=== PATIENT | female | born 1950 | race Hispanic/Latino ===

== ENCOUNTER 2019-01-05 12:21 | Emergency (ER) | payer MEDICARE ==
[~2019-01-05] VITALS: Ht 152.4 cm; Wt 75.7 kg
--- OUTSIDE RECORDS SUMMARY | 2019-01-05 12:24 | XMS REPORT ---
Author Author James Dunne Organization [employer] Address Unknown Phone Unavailable Care Team Providers Care Sld Educational Aide Name Role Phone James Dunne CP Unavailable Allergies No Known Allergies Problems Problem Type Condition Code Onset Dates Condition Status Problem Vitamin D deficiency E55.9 Active Problem Polyarthralgia M25.50 Active Problem Polyarthritis M13.0 Active Medications Medication Code System Code Instructions Start Date End Date Status Dosage Vitamin D (Ergocalciferol) [facility] [id number] 66580 UNIT Orally Once a week November 20, 2018 Active 1 capsule Results No Known Results Summary Purpose [employer] Submission
--- OUTSIDE RECORDS SUMMARY | 2019-01-05 12:24 | XMS REPORT | Continuity of Care Document ---
Author Author [email or web address] Address Unknown Phone Unavailable Care Team Providers Care Clinical Ob Name Role Phone [employer] Unavailable Unavailable Problems Problem Status Onset Date Classification Date Reported Comments Source Vitamin D deficiency Active Problem 11/22/2018 Sohail Vázquezer Polyarthralgia Active Problem 11/22/2018 Sohail Vázquezer Polyarthritis Active Problem 11/22/2018 Sohail Dunne Medications Medication Details Route Status Patient Instructions Ordering Provider Order Date Source Vitamin D (Ergocalciferol) 1 capsule Orally Active 80660 UNIT Orally Once a week [place] 11/21/2018 Sohail Dunne Vitamin D (Ergocalciferol) 1 capsule Orally Active 31145 UNIT Orally Once a week [place] 11/20/2018 Sohail Dunne Omeprazole 1 capsule Orally Active 40 MG Orally Once a day [place] Sohail Dunne Ondansetron 1 tablet on the tongue and allow to dissolve as needed Orally Active 4 MG Orally every 4 hrs [place] Sohail Dunne Lisinopril 1 tablet Orally Active 20 MG Orally Once a day [place] Sohail Dunne Dicyclomine HCl 2 capsules Orally Active 10 MG Orally Four times a day [place] Sohail Dunne Allergies, Adverse Reactions, Alerts Substance Category Reaction Severity Reaction type Status Date Reported Comments Source muscle relaxors Adverse Reaction hyperactivity & Nervousness Adverse Reaction Active 11/12/2018 Sohail Dunne Immunizations No Data Provided for This Section Results No Data Provided for This Section Pathology Reports No Data Provided for This Section Diagnostic Reports No Data Provided for This Section Consultation Notes No Data Provided for This Section Discharge Summaries No Data Provided for This Section History and Physicals No Data Provided for This Section Vital Signs Vital Sign Value Date Comments Source Weight 165.7 11/12/2018 Sohail Vázquezer Height 59 11/12/2018 Sohail Dunne Temperature Oral (F) 97.0 F 11/12/2018 Sohail Dunne Heart Rate 72 11/12/2018 Sohail Dunne Diastolic (mm Hg) 80 11/12/2018 Sohail Dunne Systolic (mm Hg) 138 11/12/2018 Sohail Dunne Encounters No Data Provided for This Section Procedures No Data Provided for This Section Assessment and Plan No Data Provided for This Section Plan of Care No Data Provided for This Section Social History No Data Provided for This Section Family History No Data Provided for This Section Advance Directives No Data Provided for This Section Functional Status No Data Provided for This Section
--- OUTSIDE RECORDS SUMMARY | 2019-01-05 12:25 | XMS REPORT ---
Author Author James Dunne Organization [employer] Address Unknown Phone Unavailable Care Team Providers Care Real Estate Marketing Coordinator Name Role Phone James Dunne CP Unavailable Allergies No Known Allergies Problems Problem Type Condition Code Onset Dates Condition Status Problem Vitamin D deficiency E55.9 Active Problem Polyarthralgia M25.50 Active Problem Polyarthritis M13.0 Active Medications Medication Code System Code Instructions Start Date End Date Status Dosage Vitamin D (Ergocalciferol) [facility] [id number] 15642 UNIT Orally Once a week November 21, 2018 Active 1 capsule Results No Known Results Summary Purpose [employer] Submission
--- OUTSIDE RECORDS SUMMARY | 2019-01-05 12:25 | XMS REPORT ---
Author Author James Dunne Organization [employer] Address Unknown Phone Unavailable Care Team Providers Care Drafter (Cad) Electronic Name Role Phone James Dunne CP Unavailable Allergies, Adverse Reactions, Alerts Substance Reaction Event Type muscle relaxors hyperactivity & Nervousness Non Drug Allergy Problems Problem Type Condition Code Onset Dates Condition Status Problem Vitamin D deficiency E55.9 Active Problem Polyarthralgia M25.50 Active Problem Polyarthritis M13.0 Active Assessment Polyarthritis M13.0 Active Assessment Vitamin D deficiency E55.9 Active Assessment Polyarthralgia M25.50 Active Medications Medication Code System Code Instructions Start Date End Date Status Dosage Omeprazole ND 07506364590 40 MG Orally Once a day Active 1 capsule Ondansetron ND 85528319895 4 MG Orally every 4 hrs Active 1 tablet on the tongue and allow to dissolve as needed Lisinopril ND 57735850181 20 MG Orally Once a day Active 1 tablet Dicyclomine HCl ND 72387616971 10 MG Orally Four times a day Active 2 capsules Vital Signs Date/Time: November 12, 2018 BMI 33.46 Index Weight 165.7 lbs Height 59 in Temperature 97.0 F Cardiac Monitoring Heart Rate 72 /min Blood Pressure Diastolic 80 mm Hg Blood Pressure Systolic 138 mm Hg Results No Known Results Summary Purpose [employer] Submission
[2019-01-05] MEDS ORDERED: SODIUM CHLORIDE 0.9% 1000ML 1,000 ML IV STA (12:43)
[2019-01-05] MEDS ORDERED: OMEPRAZOLE20 MG PO (12:47)
[2019-01-05] MEDS ORDERED: LISINOPRIL10 MG PO (12:47)
[2019-01-05] MEDS ORDERED: DICYCLOMINE HCL 20 MG/2 ML VIAL IM ONE (13:00)
[2019-01-05 13:10] LABS: BASOPHILS % 0.4 % (0.0-1.0); EOSINOPHILS # (AUTO) 0.4 (0.0-0.4); EOSINOPHILS % 4.4 % (0.0-6.0); HEMOGLOBIN 15.3 g/dL (12.0-16.0); LYMPHOCYTES # (AUTO) 2.1 (1.0-3.2); LYMPHOCYTES % 23.8 % (18.0-39.1); MEAN CORPUSCULAR HEMOGLOBIN 29.8 pg (28-32); MEAN CORPUSCULAR VOLUME 87.7 fL (81-99); MONOCYTES # (AUTO) 0.8 (0.2-0.8); MONOCYTES % 8.6 % (4.4-11.3); NEUTROPHILS # (AUTO) 5.6 (2.1-6.9); NEUTROPHILS % 62.4 % (38.7-80.0); PLATELET COUNT 251 x10e3/uL (140-360); RED BLOOD COUNT 5.13 x10e6/uL (3.6-5.1); RED CELL DISTRIBUTION WIDTH 13.2 % (11.7-14.4)
[2019-01-05 13:26] LABS: ALANINE AMINOTRANSFERASE 31 IU/L (0-55); ALBUMIN/GLOBULIN RATIO 1.3 (0.8-2.0); ALKALINE PHOSPHATASE 208 IU/L (40-150); ANION GAP 14.8 mmol/L (8-16); BLOOD UREA NITROGEN 11 mg/dL (7-26); BUN/CREATININE RATIO 14 (6-25); CALCIUM 9.5 mg/dL (8.4-10.2); CARBON DIOXIDE 21 mmol/L (22-29); CHLORIDE 108 mmol/L (98-107); CREATININE, SERUM 0.79 mg/dL (0.57-1.11); EST GLOMERULAR FILTRATION RATE > 60 ML/MIN (60-); GLUCOSE 104 mg/dL (74-118); LIPASE 19 U/L (8-78); POTASSIUM 3.8 mmol/L (3.5-5.1); SODIUM 140 mmol/L (136-145)
[2019-01-05] MEDS ORDERED: ONDANSETRON HCL INJ 2MG/ML 2ML 2 MG/ML VIAL IV ONE (13:30)
[2019-01-05] MEDS ORDERED: FAMOTIDINE 20 MG/2 ML VIAL IV ONE (13:30)
[2019-01-05 13:40] LABS: BILIRUBIN,URINE NEGATIVE (NEGATIVE); CLARITY,URINE SL CLOUDY (CLEAR); COLOR,URINE YELLOW (YELLOW); KETONES,URINE NEGATIVE (NEGATIVE); LEUKOCYTE ESTERASE ,URINE TRACE (NEGATIVE); NITRITE,URINE NEGATIVE (NEGATIVE); PROTEIN,URINE DIPSTICK NEGATIVE (NEGATIVE); URINE UROBILINOGEN 0.2 mg/dL (0.2 - 1)
--- NOTE | 2019-01-05 13:48 | Diagnostic Imaging Report ---
Exam: KUB -3 views Clinical History: Evaluate for small bowel obstruction. Comparison: None. Findings: Nonobstructive bowel gas pattern. Moderate amount of stool in the distal colon. No evidence of free intraperitoneal air. No evidence of abnormal calcification. No acute bony abnormality. Status post cholecystectomy. Impression: Nonobstructive bowel gas pattern. Moderate amount of stool in the distal colon. Signed by: Dr. Stacey Ramirez MD on 01/05/2019 1:44 PM
[2019-01-05 13:51] LABS: EPITHELIAL CELLS,URINE MODERATE /LPF
[2019-01-05 13:52] LABS: BACTERIA,URINE MODERATE /HPF
== END 2019-01-05 14:40 | disposition home or self-care (01) ==
LOC: ER 12:21
DX: R19.7 Diarrhea, unspecified (principal); N39.0 Urinary tract infection, site not specified; K21.9 Gastro-esophageal reflux disease without esophagitis; I10 Essential (primary) hypertension
CPT/HCPCS: 36415; 74019; 80053; 81001; 83605; 83690; 85025; 87086; 87186; 99284; J0500; J2405; J7030

== ENCOUNTER 2023-04-05 19:18 | Observation (INO) | payer MEDICARE ==
[~2023-04-05] VITALS: Ht 149.9 cm; Wt 75.7 kg
[~2023-04-05 19:18] MED LIST: LISINOPRIL10 MG PO; OMEPRAZOLE20 MG PO
[2023-04-05] MEDS ORDERED: ONDANSETRON HCL INJ 2MG/ML 2ML 2 MG/ML VIAL IV STA (20:52)
[2023-04-05] MEDS ORDERED: SODIUM CHLORIDE 0.9% 1000ML 1,000 ML ONE (20:58)
[2023-04-05] MEDS ORDERED: ONDANSETRON HCL INJ 2MG/ML 2ML 2 MG/ML VIAL ONE (20:58)
[2023-04-05] MEDS ORDERED: SODIUM CHLORIDE 0.9% 1000ML 1,000 ML IV SCH (21:00)
[2023-04-05] MEDS ORDERED: HYDRALAZINE HCL 20 MG/ML VIAL ONE (21:40)
[2023-04-05] MEDS ORDERED: HYDRALAZINE HCL 20 MG/ML VIAL IV ONE ×2 (21:45→22:30)
[2023-04-05] MEDS ORDERED: IOPAMIDOL 370 MG/ML 100 ML INFUS..BTL INJ ONE (21:59)
[2023-04-05] MEDS ORDERED: ACETAMINOPHEN 325 MG TAB ONE ×2 (22:45→23:08)
[2023-04-05] MEDS ORDERED: KETOROLAC TROMETHAMINE 30 MG/ML VIAL IV STA (22:57)
[2023-04-05] MEDS ORDERED: MECLIZINE HCL 12.5 MG TAB PO ONE (23:00)
[2023-04-05] MEDS ORDERED: MECLIZINE HCL 12.5 MG TAB ONE (23:07)
[2023-04-05] MEDS ORDERED: KETOROLAC TROMETHAMINE 30 MG/ML VIAL ONE (23:07)
[2023-04-05] MEDS ORDERED: ONDANSETRON HCL INJ 2MG/ML 2ML 2 MG/ML VIAL IV PRN (23:30)
[2023-04-05] MEDS ORDERED: SODIUM CHLORIDE FLUSH 10 ML SYR INJ PRN (23:30)
[2023-04-05] MEDS ORDERED: HYDRALAZINE HCL 20 MG/ML VIAL IV PRN (23:30)
[2023-04-05] MEDS ORDERED: ASPIRIN 81 MG CHEW TAB PO ONE (23:30)
[2023-04-05] MEDS ORDERED: ACETAMINOPHEN 325 MG TAB PO PRN (23:30)
[2023-04-06] VITALS (7 sets, daily range): BP systolic 145–155; BP diastolic 67–86; PULSE 69–79; RESP 16–18; TEMP 97.8–98.3; O2SAT 98–100
[2023-04-06 05:07] LABS: BASOPHILS # (AUTO) 0.1 (0.0-0.1); BASOPHILS % 1.1 % (0.0-1.0); EOSINOPHILS # (AUTO) 0.4 (0.0-0.4); EOSINOPHILS % 5.2 % (0.0-6.0); HEMATOCRIT 38.3 % (34.2-44.1); HEMOGLOBIN 13.4 g/dL (12.0-16.0); LYMPHOCYTES # (AUTO) 2.8 (1.0-3.2); LYMPHOCYTES % 37.6 % (18.0-39.1); MEAN CORPUSCULAR HEMOGLOBIN 29.7 pg (28-32); MEAN CORPUSCULAR VOLUME 84.9 fL (81-99); MONOCYTES # (AUTO) 0.7 (0.2-0.8); MONOCYTES % 9.2 % (4.4-11.3); NEUTROPHILS # (AUTO) 3.5 (2.1-6.9); NEUTROPHILS % 46.6 % (38.7-80.0); PLATELET COUNT 210 x10e3/uL (140-360); RED BLOOD COUNT 4.51 x10e6/uL (3.6-5.1); RED CELL DISTRIBUTION WIDTH 13.2 % (11.7-14.4); WHITE BLOOD COUNT 7.43 x10e3/uL (4.8-10.8)
[2023-04-06 05:23] LABS: ALBUMIN 3.3 g/dL (3.5-5.0); ALBUMIN/GLOBULIN RATIO 1.5 (0.8-2.0); ANION GAP 12.6 mmol/L (8-16); CALCIUM 8.6 mg/dL (8.4-10.2); CREATINE KINASE 48 IU/L (29-168); CREATININE, SERUM 0.74 mg/dL (0.57-1.11); POTASSIUM 3.6 mmol/L (3.5-5.1)
[2023-04-06] MEDS ORDERED: PANTOPRAZOLE SOD 40 MG TABEC PO SCH (07:30)
[2023-04-06] MEDS ORDERED: DOCUSATE SODIUM 100 MG CAP PO PRN (08:00)
[2023-04-06] MEDS ORDERED: MELATONIN 3 MG TAB PO PRN (08:00)
[2023-04-06 08:25] LABS: CHOL/HDL RATIO 3.9 (3.0-3.6)
[2023-04-06] MEDS ORDERED: LOSARTAN POTASS50 MG PO (10:02)
[2023-04-06] MEDS ORDERED: PANTOPRAZOLE SO20 MG (10:02)
[2023-04-06] MEDS: LOSARTAN POTASSIUM 25 MG TAB PO SCH ×2 (10:18→16:11)
[2023-04-06 15:04] LABS: CREATINE KINASE 49 IU/L (29-168)
[2023-04-06] MEDS ORDERED: SUCRALFATE 1 GM/10 ML SUSP PO SCH (21:00)
[2023-04-07] VITALS: BP 108/55; PULSE 76; RESP 18; TEMP 97.8; O2SAT 100
[2023-04-07 04:00] VITALS: BP 125/64; PULSE 74; RESP 18; TEMP 97.9; O2SAT 99
[2023-04-07] MEDS ORDERED: METOPROLOL TART25 MG PO (08:07)
[2023-04-07] MEDS ORDERED: CARAFATE1 GM PO (08:07)
[2023-04-07] MEDS ORDERED: MECLIZINE HCL12.5 MG PO (08:09)
[2023-04-07 08:28] VITALS: BP 124/73; PULSE 92; RESP 19; TEMP 98.1; O2SAT 98
== END 2023-04-07 09:42 | disposition home or self-care (01) ==
LOC: FSED 19:24 → ERHOLD 23:24 → MED/SURG2 04-06 08:30
PROVIDERS: ADMIT Internal Medicine; ATTEND Internal Medicine
DX: R42 Dizziness and giddiness (principal); I10 Essential (primary) hypertension; E11.9 Type 2 diabetes mellitus without complications; E78.5 Hyperlipidemia, unspecified; E66.9 Obesity, unspecified; Z68.33 Body mass index [BMI] 33.0-33.9, adult; Z86.79 Personal history of other diseases of the circulatory system; Z11.52 Encounter for screening for COVID-19; K21.9 Gastro-esophageal reflux disease without esophagitis; M06.9 Rheumatoid arthritis, unspecified; Z88.8 Allergy status to other drugs, medicaments and biological substances; Z79.899 Other long term (current) drug therapy
CPT/HCPCS: 36415 ×2; 70496; 70498; 80053 ×2; 80061; 81003; 82550; 82553; 82948 ×2; 83036; 84484 ×2; 85025 ×2; 93005; 99284; G0378 ×3; J0360; J1885; J2405 ×2; J7030; J8597; Q9967; S0164; U0002